=== PATIENT | female | born 1970 | race African-American/Black ===

== ENCOUNTER 2016-07-28 21:40 | Emergency (ER) | payer SELFPAY ==
[~2016-07-28] VITALS: Ht 170.2 cm; Wt 59.0 kg
[2016-07-28 23:55] LABS: BASOPHILS % 1.2 % (0.0-2.0); CHLORIDE 104 mEq/L (98-107); EOSINOPHILS % 1.6 % (0.0-5.0); HEMATOCRIT. 41.6 % (36.0-48.0); HEMOGLOBIN. 13.9 g/dL (12.0-16.0); INDEX HEMOLYSI 1 (1-3); INDEX ICTERIC 1 (1-4); INDEX LIPEMIC 1 (1-3); LYMPHOCYTES % 38.7 % (20.0-50.0); MEAN CORPUSCULAR HEMOGLOBIN 30.5 pg (28.0-32.0); MEAN CORPUSCULAR HGB CONC 33.5 g/dL (31.0-37.0); MEAN CORPUSCULAR VOLUME 90.8 fL (81.0-99.0); MEAN PLATELET VOLUME 6.9 fl (7.4-10.4); MONOCYTES % 7.6 % (2.0-8.0); NEUTROPHILS % 50.9 % (40.0-76.0); PLATELET 298 x1000/uL (130-400); RED BLOOD CELL COUNT 4.58 mill/uL (4.2-5.4); RED CELL DISTRIBUTION WIDTH 14.4 % (11.6-14.6); WHITE BLOOD COUNT 5.7 x1000/uL (4.5-11.0)
[2016-07-29] LABS: ANION GAP 14; CALCIUM 8.7 mg/dL (8.5-10.1); CARBON DIOXIDE 25 mEq/L (21-32); MAGNESIUM 2.2 mg/dL (1.8-2.4); eGFR > 60 mL/min (>60)
[2016-07-29 00:02] LABS: UREA NITROGEN BLOOD 4 mg/dL (7-21)
[2016-07-29 03:35] VITALS: BP 100/60
== END 2016-07-29 07:18 | disposition home or self-care (01) ==
LOC: ER 21:42
DX: M54.12 Radiculopathy, cervical region (principal); R20.2 Paresthesia of skin; F17.210 Nicotine dependence, cigarettes, uncomplicated
CPT/HCPCS: 36415; 70450; 72040; 72125; 73110; 80048; 81025; 83735; 85025; 99285; Z7610

== ENCOUNTER 2017-06-16 15:01 | Emergency (ER) | payer MEDICAID, MEDICARE ==
[~2017-06-16] VITALS: Ht 170.2 cm; Wt 61.0 kg
[2017-06-16 15:34] VITALS: BP 131/74
== END 2017-06-16 22:00 | disposition left against medical advice (07) ==
LOC: ER 21:02
DX: Z53.21 Procedure and treatment not carried out due to patient leaving prior to being seen by health care provider (principal)

== ENCOUNTER 2017-06-18 00:17 | Emergency (ER) | payer MEDICARE ==
[~2017-06-18] VITALS: Ht 170.2 cm; Wt 66.2 kg
[2017-06-18] MEDS ORDERED: LIDOCAINE HCL 1% 20ML VIAL (Pyxis) INJ MC ONE (08:30)
[2017-06-18] MEDS ORDERED: IBUPROFEN 600MG TABLET PO ONE (08:30)
[2017-06-18] MEDS ORDERED: BACITRACIN ZINC OINT UDPKT TOP ONE (08:30)
[2017-06-18 10:15] VITALS: BP 136/78
== END 2017-06-18 10:27 | disposition home or self-care (01) ==
LOC: ER 00:17
DX: L02.811 Cutaneous abscess of head [any part, except face] (principal); L72.3 Sebaceous cyst; F17.200 Nicotine dependence, unspecified, uncomplicated
CPT/HCPCS: 10060; 99283; J3490; X7700; Z7610

== ENCOUNTER 2021-05-12 08:11 | Emergency (ER) | payer MEDICAID, MEDICARE ==
[~2021-05-12] VITALS: Ht 170.2 cm; Wt 65.0 kg
[2021-05-12] MEDS ORDERED: IBUP-2029 MT (09:49)
[2021-05-12] MEDS ORDERED: CEPH500T MT (09:49)
[2021-05-12 09:59] VITALS: BP 112/76
== END 2021-05-12 10:03 | disposition home or self-care (01) ==
LOC: ER 08:23
DX: L03.211 Cellulitis of face (principal)
CPT/HCPCS: 99283